=== PATIENT | female | born 1950 | race Caucasian/White ===

== ENCOUNTER 2017-08-24 17:32 | Inpatient (IN) | payer MEDICAID ==
[~2017-08-24] VITALS: Ht 162.6 cm; Wt 72.0 kg
[2017-08-24] MEDS ORDERED: ASPIRIN 325 MG TAB PO STA (17:59)
[2017-08-24] MEDS ORDERED: SOD CHLORIDE 0.9% 500 ML IV STA (17:59)
[2017-08-24] MEDS ORDERED: DILTIAZEM 25 MG INJ IV ONE (18:00)
--- NOTE | 2017-08-24 18:20 | RADRPT ---
PROCEDURE: XR Chest. CLINICAL INDICATION: Chest pain. TECHNIQUE: Single frontal view. COMPARISON: None. FINDINGS: The lungs are clear. The heart size is normal. There is no pleural effusion. There is no pneumothorax. IMPRESSION: 1. Normal chest radiograph. RPTAT: QQ .Werner iDaz MD, Date Time Electronically viewed and signed by .Werner Diaz MD, on 08/24/2017 18:20 .R/
[2017-08-24 19:05] LABS: BASOPHILS % 0.3 % (0.0-2.0); EOSINOPHILS # 0.1 10^3/ul (0.0-0.5); EOSINOPHILS % 1.1 % (0.0-7.0); HEMATOCRIT 41.8 % (37.0-47.0); LYMPHOCYTES % 19.6 % (15.0-51.0); MEAN CORPUSCULAR HEMOGLOBIN 31.3 pg (29.0-33.0); MEAN CORPUSCULAR HGB CONC 33.5 g/dl (32.0-37.0); MEAN CORPUSCULAR VOLUME 93.3 fl (82.0-101.0); MEAN PLATELET VOLUME 10.4 fl (7.4-10.4); MONOCYTE # 0.7 10^3/ul (0.3-0.9); MONOCYTES % 6.6 % (0.0-11.0); NEUTROPHIL # 7.4 10^3/ul (1.6-7.5); NEUTROPHILS % 72.1 % (39.0-77.0); PLATELET COUNT 241 10^3/UL (140-415); RED BLOOD COUNT 4.48 10^6/ul (4.20-5.40); RED CELL DISTRIBUTION WIDTH 12.8 % (11.5-14.5); WHITE BLOOD COUNT 10.2 10^3/ul (4.8-10.8)
[2017-08-24 19:33] LABS: ANION GAP 15 (8-16); BLOOD UREA NITROGEN 18 mg/dl (7-20); CALCIUM 9.9 mg/dl (8.4-10.2); CARBON DIOXIDE 27 mmol/L (21-31); CHLORIDE 105 mmol/L (97-110); GLUCOSE 92 mg/dl (70-220); POTASSIUM 3.7 mmol/L (3.5-5.1); SODIUM 143 mmol/L (135-144)
[2017-08-24] MEDS ORDERED: AMLO5TAB4 PO (19:36)
[2017-08-24] MEDS ORDERED: ASPI81TA3 PO (19:37)
[2017-08-24 19:45] LABS: B-TYPE NATRIURETIC PEPTIDE 524 PG/ML (0-125)
[2017-08-24 19:48] LABS: TROPONIN-I < 0.012 ng/ml (0.00-0.12)
[2017-08-24] MEDS ORDERED: morphine 4 MG/ML VIAL IV STA (20:19)
[2017-08-24] MEDS ORDERED: METOPROLOL 5 MG INJ IV ONE (20:30)
[2017-08-24] MEDS ORDERED: DILTIAZEM-D5W 125MG/125ML DRIP 125 ML IV SCH (20:30)
[2017-08-24] MEDS ORDERED: ENOXAPARIN 80 MG/0.8 ML SYG SC SCH (20:30)
[2017-08-24] MEDS ORDERED: ACETAMINOPHEN 325 MG TAB PO PRN (21:00)
[2017-08-24] MEDS ORDERED: ONDANSETRON 4 MG INJ IV PRN (21:00)
--- NOTE | 2017-08-24 23:42 | ERD ---
ER Documentation Chief Complaint Chief Complaint Complains of palpitions since today HPI This 59-year-old female comes in the emergency room for chest pain and palpitations as well as shortness of breath and nausea that began several hours ago. Chest pain is sharp on the left side and central. ROS All systems reviewed and are negative except as per history of present illness. Medications Home Meds Reported Medications Aspirin* (Aspirin* Chew) 81 Mg Tab.chew, 81 MG PO DAILY, TAB.CHEW 08/24/17 Amlodipine Besylate* (Norvasc*) 5 Mg Tablet, 5 MG PO DAILY, TAB 08/24/17 Allergies Allergies: Coded Allergies: No Known Allergy (Unverified , 08/24/17) PMhx/Soc History of Surgery: No Anesthesia Reaction: No Hx Neurological Disorder: No Hx Respiratory Disorders: No Hx Cardiac Disorders: Yes (htn) Hx Psychiatric Problems: No Hx Miscellaneous Medical Probl: No Hx Alcohol Use: No Hx Substance Use: No Hx Tobacco Use: No Smoking Status: Never smoker Physical Exam Vitals Vital Signs Date Time Temp Pulse Resp B/P Pulse Ox O2 Delivery O2 Flow Rate FiO2 08/24/17 20:12 99.7 112 19 130/89 100 Room Air 08/24/17 19:01 99.7 99 19 126/82 100 Room Air 08/24/17 17:37 99.7 82 20 120/80 100 Physical Exam Const: [] Moderate distress Head: Atraumatic Eyes: Normal Conjunctiva ENT: Normal External Ears, Nose and Mouth. Neck: Full range of motion..~ No JVD Resp: Clear to auscultation bilaterally Cardio: Irregularly irregular tachycardia, no murmurs Abd: Soft, non tender, non distended. Normal bowel sounds Skin: No petechiae or rashes Back: No midline or flank tenderness Ext: No cyanosis, or edema Neur: Awake and alert and oriented 3, no focal deficits Psych: Normal Mood and Affect Result Diagram: 08/24/17184908/24/171849 Results 24 hrs Laboratory Tests Test 08/24/17 18:50 White Blood Count 10.210^3/ul Red Blood Count 4.4810^6/ul Hemoglobin 14.0g/dl Hematocrit 41.8% Mean Corpuscular Volume 93.3fl Mean Corpuscular Hemoglobin 31.3pg Mean Corpuscular Hemoglobin Concent 33.5g/dl Red Cell Distribution Width 12.8% Platelet Count 14287^3/UL Mean Platelet Volume 10.4fl Neutrophils % 72.1% Lymphocytes % 19.6% Monocytes % 6.6% Eosinophils % 1.1% Basophils % 0.3% Nucleated Red Blood Cells % 0.0/100WBC Neutrophils # 7.410^3/ul Lymphocytes # 2.010^3/ul Monocytes # 0.710^3/ul Eosinophils # 0.110^3/ul Basophils # 0.010^3/ul Nucleated Red Blood Cells # 0.010^3/ul Sodium Level 143mmol/L Potassium Level 3.7mmol/L Chloride Level 105mmol/L Carbon Dioxide Level 27mmol/L Anion Gap 15 Blood Urea Nitrogen 18mg/dl Creatinine 0.80mg/dl Glucose Level 92mg/dl Calcium Level 9.9mg/dl Troponin I < 0.012ng/ml B-Type Natriuretic Peptide 524PG/ML Current Medications Medications (Trade) Dose Ordered Sig/Lev Route PRN Reason Start Time Stop Time Status Last Admin Dose Admin Sodium Chloride (NS) 500 ml @ 500 mls/hr Q1H STAT IV 08/24/17 17:59 08/24/17 18:58 DC 08/24/17 17:59 Aspirin (Aspirin) 325 mg ONCE STAT PO 08/24/17 17:59 08/24/17 18:02 DC 08/24/17 18:50 Diltiazem HCl (Cardizem Iv) 20 mg ONCE ONCE IV 08/24/17 18:00 08/24/17 18:02 DC 08/24/17 18:50 Metoprolol Tartrate 5 mg 5 mg ONCE ONCE IV 08/24/17 20:30 08/24/17 20:31 DC 08/24/17 20:40 Diltiazem HCl (Cardizem-D5W 125 Mg/125 ml Drip) 125 ml @ 5 mls/hr TITRATE IV 08/24/17 20:30 08/24/17 20:40 Enoxaparin Sodium (Lovenox) 70 mg ONCE SC 08/24/17 20:30 08/24/17 20:40 Morphine Sulfate (morphine) 4 mg ONCE STAT IV 08/24/17 20:19 08/24/17 20:22 DC 08/24/17 20:41 Ondansetron HCl (Zofran Inj) 4 mg ER BRIDGE PRN IV NAUSEA AND/OR VOMITING 08/24/17 21:00 08/25/17 20:59 Acetaminophen (Tylenol Tab) 650 mg ER BRIDGE PRN PO MILD PAIN/FEVER 08/24/17 21:00 08/25/17 20:59 Procedures/MDM A. fib with RVR in a patient is not acting in a critically as well as chest pain with no signs of acute ischemia. She was given 500 of normal saline as well as 20 mg of Cardizem. No signs of CHF. This initially slowed her heart rate which still remained over 100. She was then given 5 mg metoprolol started on a Cardizem drip. She was given 325 mg of aspirin as well. Administered 1 mg /kg of Lovenox the patient is not anticoagulated although she has had A. fib in the past in [place]. Rivera is admitting EKG interpretation: Fibrillation rate of 141, left axis deviation, no ST or T- wave changes concerning for acute ischemia. 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 fib with RVR gradually improved with medications. Other arrhythmias Chest x-ray interpretation: See no acute process, see no infiltrates, no widened mediastinum, pneumothorax, no fracture Critical care time greater than 35 minutes: This includes treatment of A. fib with RVR, stable vital signs, using multiple doses of vasoactive agents and multiple visits patient's bedside to reassess status, chart review, careful fluid administration, discussion with patient and admitting doctor. This does not include any billable procedures. Departure Diagnosis: Primary Impression: Atrial fibrillation with RVR Additional Impression: Chest pain Condition: Serious MATHEW MIDDLETON DO Aug 24, 2017 23:42
[2017-08-25] VITALS (13 sets, daily range): BP systolic 100–120; BP diastolic 60–69; PULSE 93–98; RESP 16–20; TEMP 98.8; Ht 162.6 cm; Wt 72.0 kg
[2017-08-25] MEDS ORDERED: ACETAMINOPHEN 325 MG TAB PO PRN (00:30)
[2017-08-25] MEDS ORDERED: NACL 0.9% 3 ML SYG IV SCH (00:30)
[2017-08-25] MEDS ORDERED: ONDANSETRON 4 MG INJ IV PRN (00:30)
[2017-08-25 00:43] LABS: CREATINE KINASE 47 IU/L (23-200)
[2017-08-25 00:56] LABS: CK-MB 0.37 ng/ml (0.0-2.4)
[2017-08-25 01:14] LABS: TROPONIN-I < 0.012 ng/ml (0.00-0.12)
[2017-08-25] MEDS ORDERED: PANTOPRAZOLE 40 MG INJ IV SCH (06:00)
[2017-08-25] MEDS ORDERED: POTASSIUM CHLORIDE (SR) 20 MEQ TAB PO ONE (06:37)
--- NOTE | 2017-08-25 06:39 | HP ---
Date/Time of Note Date/Time of Note DATE: 08/25/17 TIME: 06:26 Assessment/Plan VTE Prophylaxis VTE Prophylaxis Intervention: LMWH Lines/Catheters IV [facility]ter [facility]from [facility] Peripheral IV Assessment/Plan Chief Complaint/Hosp Course This is a 67-year-old female being admitted to the telemetry floor for: #1 New onset atrial fibrillation: Patient denies any previous history of atrial fibrillation. At the current time she is rate controlled with a Cardizem drip. Will continue monitoring on telemetry. Will check TSH. Will check magnesium. Will replete potassium to keep it above 4. Will trend cardiac enzymes first set is negative. Will obtain an echocardiogram. Will consult cardiology. Patient also has been started on therapeutic doses of Lovenox for anticoagulation. Continue aspirin 81 mg. Check lipid panel. #2 pleuritic chest pain: Her cardiac enzymes at this time remain negative. Will continue to trend these. As she states that she had a previous history of blood clot I would like to check a CTA of the chest to rule out PE. She is currently on therapeutic dose of Lovenox we will continue this. #3 elevated BNP: At the current time patient does not appear fluid overloaded. Lungs are clear to auscultation and there is no lower extremity edema. She does not appear like she is in any acute cardiac decompensation. Will check a BNP. Will consult cardiology. #4 Hypertension: Continue Norvasc. #5 DVT GI prophylaxis: Lovenox, Protonix Further treatment strategy will be implemented as per the clinical course Problems: HPI/ROS Admit Date/Time Admit Date/Time Aug 24, 2017 at 20:48 Hx of Present Illness Chief complaint: Palpitations This is a 59-year-old female comes in the emergency room for chest pain and palpitations as well as shortness of breath and nausea that began several hours prior to arrival. Patient reports chest pain as being pleuritic in nature , worsening every time she takes a deep breath. She denies any fevers. Upon arriving to the ED she did receive metoprolol and is currently on a Cardizem drip with a heart rate currently rate controlled below 100. At the current time she denies any palpitations. She does report the pleuritic pain on deep inspiration, though it has decreased in intensity. Patient states that in the past that she had a blood clot apparently in her lower extremity and that they did give her a medication that she does not know the name of for a few weeks possibly. She denies any previous history of atrial fibrillation or irregular heartbeat. Allergies: NKDA Medications: See DEEDEE PAUL Const: As per HPI Eyes : No pain discharge or redness or change in visual acuity ENT: No pain, sore throat, congestion, congestion, dysphagia or discharge Respiratory: As per HPI Cardiovascular: As per HPI GI : no change in appetite, abdominal pain, nausea, vomiting, diarrhea, constipation, or change in the color his stool Genitourinary: No dysuria, hematuria, flank pain , discharge or CVA tenderness Musculoskeletal: No joint pain, back pain, neck pain, restricted range of motion in neck or joints Skin: No rash, bruising or hives Neuro: No headache, dizziness, syncope, seizure, focal weakness Endocrine: No polyuria, polydipsia, temperature intolerance Psych: No hallucination, depression, anxiety or suicidal ideation PMH/Family/Social Past Medical History Hypertension, blood clot?, History of left breast tumor Past Surgical History Left breast lumpectomy, tonsillectomy Family History Significant Family History: heart disease, diabetes Social History Alcohol Use: none Smoking Status: Never smoker Drug Use: none Exam/Review of Systems Vital Signs Vitals Vital Signs Date Time Temp Pulse Resp B/P Pulse Ox O2 Delivery O2 Flow Rate FiO2 08/25/17 04:27 94 08/25/17 04:00 99.2 16 103/60 98 08/25/17 01:07 Room Air 08/25/17 00:12 2.0 Intake and Output 08/24/17 08/24/17 08/25/17 15:00 23:00 07:00 Intake Total 100 ml Balance 100 ml Exam Exam General: Patient is a pleasant female lying in bed in no acute distress HEENT: Atraumatic, normocephalic. The pupils are equal, round and reactive. Extraocular motor are intact Neck: Supple with full range of motion. No rigidity or meningismus Chest: Nontender Lungs: Clear to auscultation bilaterally no crackles rales or wheezing, patient does report pleuritic substernal pain upon deep inspiration Heart: Currently regular rate and rhythm, previously irregular, no overt murmurs appreciated Abdomen: Soft , nontender, nondistended , bowel sounds are present. No guarding no rebound tenderness , No masses or organomegaly. No costovertebral temporal angle mass Extremities: Normal to inspection, no edema no cyanosis Neurologic: Normal mental status, speech normal, cranial nerves II through XII are intact, motor and sensory are intact, no focal weakness Additional Comments PROCEDURE: XR Chest. CLINICAL INDICATION: Chest pain. TECHNIQUE: Single frontal view. COMPARISON: None. FINDINGS: The lungs are clear. The heart size is normal. There is no pleural effusion. There is no pneumothorax. IMPRESSION: 1. Normal chest radiograph. RPTAT: QQ .Werner Diaz MD, MD Date Time Electronically viewed and signed by .Werner Diaz MD, MD on 08/24/2017 18:20 .R/ CC: MATHEW MIDDLETON DO EKG interpretation: Fibrillation rate of 141, left axis deviation, no ST or T- wave changes concerning for acute ischemia. As per ED physician recommendation Labs Result Diagram: 08/24/17 1850 08/24/17 1850 Medications Medications Current Medications Diltiazem HCl (Cardizem-D5W 125 Mg/125 ml Drip) 125 ml @ 5 mls/hr TITRATE IV Last administered on 08/24/17 20:40; Admin Dose 5 MLS/HR; Start 08/24/17 at 20:30 Ondansetron HCl (Zofran Inj) 4 mg Q6H PRN IV NAUSEA AND/OR VOMITING; Start at 00:30 Aspirin (Aspirin) 81 mg DAILY PO ; Start 08/25/17 at 09:00 Acetaminophen (Tylenol Tab) 650 mg Q6H PRN PO PAIN LEVEL 1-3 OR FEVER; Start 08/25/17 at 00:30 Pantoprazole (Protonix Iv) 40 mg DAILY@06 IV Last administered on 08/25/17 05 :55; Admin Dose 40 MG; Start 08/25/17 at 06:00 Enoxaparin Sodium (Lovenox) 70 mg Q12 SC ; Start 08/25/17 at 09:00 ANJALI MURPHY Aug 25, 2017 06:37
[2017-08-25] MEDS ORDERED: ENOXAPARIN 80 MG/0.8 ML SYG SC SCH (09:00)
[2017-08-25] MEDS ORDERED: ASPIRIN 81 MG TAB PO SCH ×2 (09:00)
[2017-08-25] MEDS ORDERED: AMLODIPINE 5 MG TAB PO SCH (09:00)
[2017-08-25 09:18] LABS: BASOPHILS % 0.3 % (0.0-2.0); EOSINOPHILS % 0.4 % (0.0-7.0); HEMATOCRIT 39.2 % (37.0-47.0); HEMOGLOBIN 13.3 g/dl (12.0-16.0); LYMPHOCYTES # 1.3 10^3/ul (0.8-2.9); LYMPHOCYTES % 13.4 % (15.0-51.0); MEAN CORPUSCULAR HEMOGLOBIN 31.5 pg (29.0-33.0); MEAN CORPUSCULAR HGB CONC 33.9 g/dl (32.0-37.0); MEAN CORPUSCULAR VOLUME 92.9 fl (82.0-101.0); MEAN PLATELET VOLUME 10.5 fl (7.4-10.4); MONOCYTE # 0.6 10^3/ul (0.3-0.9); MONOCYTES % 5.7 % (0.0-11.0); NEUTROPHIL # 7.8 10^3/ul (1.6-7.5); NEUTROPHILS % 79.8 % (39.0-77.0); PLATELET COUNT 241 10^3/UL (140-415); RED BLOOD COUNT 4.22 10^6/ul (4.20-5.40); RED CELL DISTRIBUTION WIDTH 12.9 % (11.5-14.5); WHITE BLOOD COUNT 9.8 10^3/ul (4.8-10.8)
[2017-08-25 09:43] LABS: ALBUMIN 3.4 g/dl (3.3-4.9); ALBUMIN/GLOBULIN RATIO 1.09; BILIRUBIN,INDIRECT 0.7 mg/dl (0-1.1); BILIRUBIN,TOTAL 0.7 mg/dl (0.2-1.3); CALCIUM 9.5 mg/dl (8.4-10.2); CHOL/HDL RATIO 2.5 RATIO; CREATININE 0.7 mg/dl (0.44-1.00); MAGNESIUM 1.9 mg/dl (1.7-2.5); POTASSIUM 4.6 mmol/L (3.5-5.1); TOTAL PROTEIN 6.5 g/dl (6.1-8.1)
[2017-08-25 09:53] LABS: CREATINE KINASE 35 IU/L (23-200)
[2017-08-25 10:09] LABS: CK-MB < 0.22 ng/ml (0.0-2.4); TROPONIN-I < 0.012 ng/ml (0.00-0.12)
[2017-08-25 10:13] LABS: THYROID STIMULATING HORMONE 1.61 MIU/L (0.465-4.680)
--- NOTE | 2017-08-25 11:24 | PN ---
Date/Time of Note Date/Time of Note DATE: 08/25/17 TIME: 11:24 Assessment/Plan VTE Prophylaxis VTE Prophylaxis Intervention: LMWH Lines/Catheters IV Catheter Type (from Nrs): Peripheral IV Assessment/Plan Assessment/Plan 1. Atrial fibrillation with RVR - Patient states she was told she had afib last month but only lasted 1 day - Started on Eliquis - Awaiting ECHO results - Cardiology on board and recommendations appreciated. Started on Eliquis and all other medications d/c 2. pleuritic chest pain - CTA performed and negative for any acute abnormalities. 3. Elevated BNP - Appears euvolemia with no LE edema - ECHO results pending 4. Hypertension - stable 5. Disposition - Will monitor overnight and if no issues, will d/c in am Subjective 24 Hr Interval Summary Free Text/Dictation Patient states shes feeling better since admission but still experiencing sternal chest discomfort. She was experiencing difficulty breathing yesterday prior to presenting but has improved. Denies any nausea, vomiting, chest pain, shortness of breath, palpitations, or abdominal issues. Exam/Review of Systems Vital Signs Vitals Vital Signs Date Time Temp Pulse Resp B/P Pulse Ox O2 Delivery O2 Flow Rate FiO2 08/25/17 08:18 99.0 98 19 110/69 98 08/25/17 01:07 Room Air 08/25/17 00:12 2.0 Intake and Output 08/24/17 08/24/17 08/25/17 15:00 23:00 07:00 Intake Total 100 ml Balance 100 ml Exam General: Patient is a pleasant female lying in bed in no acute distress HEENT: Atraumatic, normocephalic. The pupils are equal, round and reactive. Extraocular motor are intact Neck: Supple with full range of motion. Lungs: Clear to auscultation bilaterally no crackles rales or wheezing, patient does report pleuritic substernal pain upon deep inspiration Heart: Currently regular rate and rhythm, no overt murmurs appreciated Abdomen: Soft , nontender, nondistended , bowel sounds are present. No guarding no rebound tenderness Extremities: Normal to inspection, no edema no cyanosis Neurologic: Normal mental status, speech normal, cranial nerves II through XII are intact, motor and sensory are intact, no focal weakness Results Result Diagram: 08/25/1781208/25/17812 Results 24 hrs Laboratory Tests Test 08/24/17 18:50 08/24/17 23:00 08/25/17 08:13 White Blood Count 10.2 9.8 Red Blood Count 4.48 4.22 Hemoglobin 14.0 13.3 Hematocrit 41.8 39.2 Mean Corpuscular Volume 93.3 92.9 Mean Corpuscular Hemoglobin 31.3 31.5 Mean Corpuscular Hemoglobin Concent 33.5 33.9 Red Cell Distribution Width 12.8 12.9 Platelet Count 241 241 Mean Platelet Volume 10.4 10.5 H Neutrophils % 72.1 79.8 H Lymphocytes % 19.6 13.4 L Monocytes % 6.6 5.7 Eosinophils % 1.1 0.4 Basophils % 0.3 0.3 Nucleated Red Blood Cells % 0.0 0.0 Neutrophils # 7.4 7.8 H Lymphocytes # 2.0 1.3 Monocytes # 0.7 0.6 Eosinophils # 0.1 0.0 Basophils # 0.0 0.0 Nucleated Red Blood Cells # 0.0 0.0 Sodium Level 143 140 Potassium Level 3.7 4.6 Chloride Level 105 108 Carbon Dioxide Level 27 28 Anion Gap 15 9 # Blood Urea Nitrogen 18 15 Creatinine 0.80 0.70 Glucose Level 92 96 Calcium Level 9.9 9.5 Troponin I < 0.012 < 0.012 < 0.012 B-Type Natriuretic Peptide 524 H Creatine Kinase 47 35 Creatine Kinase Index 0.8 0.6 Creatinine Kinase MB (Mass) 0.37 < 0.22 Hemoglobin A1c 5.2 Magnesium Level 1.9 Total Bilirubin 0.7 Direct Bilirubin 0.00 Indirect Bilirubin 0.7 Aspartate Amino Transf (AST/SGOT) 22 Alanine Aminotransferase (ALT/SGPT) 36 Alkaline Phosphatase 81 Total Protein 6.5 Albumin 3.4 Globulin 3.10 Albumin/Globulin Ratio 1.09 Triglycerides Level 62 Cholesterol Level 183 LDL Cholesterol, Calculated 99 HDL Cholesterol 72 Cholesterol/HDL Ratio 2.5 Thyroid Stimulating Hormone (TSH) 1.610 Medications Medications Current Medications Diltiazem HCl (Cardizem-D5W 125 Mg/125 ml Drip) 125 ml @ 5 mls/hr TITRATE IV Last administered on 08/24/17t 20:40; Admin Dose 5 MLS/HR; Start 08/24/17 at 20:30 Ondansetron HCl (Zofran Inj) 4 mg Q6H PRN IV NAUSEA AND/OR VOMITING; Start at 00:30 Acetaminophen (Tylenol Tab) 650 mg Q6H PRN PO PAIN LEVEL 1-3 OR FEVER; Start 08/25/17 at 00:30 Pantoprazole (Protonix Iv) 40 mg DAILY@06 IV Last administered on 08/25/17 05 :55; Admin Dose 40 MG; Start 08/25/17 at 06:00 Enoxaparin Sodium (Lovenox) 70 mg Q12 SC Last administered on 08/25/17 09:19 ; Admin Dose 70 MG; Start 08/25/17 at 09:00 Amlodipine Besylate (Norvasc) 5 mg DAILY PO Last administered on 08/25/17 09: 20; Admin Dose 5 MG; Start 08/25/17 at 09:00 Aspirin (Aspirin) 81 mg DAILY PO Last administered on 08/25/17 09:20; Admin Dose 81 MG; Start 08/25/17 at 09:00 KATI ROCHE MD Aug 25, 2017 11:24
[2017-08-25] MEDS ORDERED: SOD CHLORIDE 0.9% 100 ML ONE (12:11)
[2017-08-25] MEDS ORDERED: IOHEXOL 100 ML ONE (12:11)
--- NOTE | 2017-08-25 12:47 | RADRPT ---
PROCEDURE: CTA Chest. CLINICAL INDICATION: Chest pain TECHNIQUE: The study was performed utilizing a multidetector CT scanner. Direct spiral 1 mm axial sections were obtained from the thoracic inlet to the upper abdomen with the use of 125 cc of Omnipa que 350 nonionic intravenous contrast material and reformatted at 3 mm. Coronal and sagittal reforma tions were obtained. 3-D reconstructions were also obtained. The images were reviewed on a PACS wor kstation. One or more of the following dose reduction techniques were used: - Automated exposure control. - Adjustment of the mA and/or kV according to patient size. Use of iterative reconstruction technique. DLP 402.1 mGycm CTDIvol 49.3 and 9.4 mGy COMPARISON: No prior studies are available for comparison. FINDINGS: The pulmonary arteries are within normal limits with no filling defects present to suggest pulmonary embolus. Aortic and coronary artery atherosclerotic plaque and calcification are present with no e vidence of dissection. There is no cardiomegaly. There is ascending aortic ectasia measuring up to 3.7 cm. Bilateral trace pleural effusions are seen with mild basilar septal thickening present. The lungs ar e otherwise clear. The airways are patent. There is no suspicious nodule or mass. The airways are p atent. There are no enlarged mediastinal or axillary lymph nodes. Upper abdominal structures are within normal limits. There is a fecal filled colon. Degenerative marquita nges are seen in the lumbar spine with no evidence of acute osseous abnormality. IMPRESSION: No CT evidence for pulmonary embolus. There is no aortic dissection. Atherosclerotic disease. There is ascending aortic ectasia. Trace bilateral layering effusions are present with mild pulmonary edema. RPTAT: AA .Raymundo Sutherland MD, MD Date Time Electronically viewed and signed by .Raymundo Sutherland MD, MD on 08/25/2017 12:46 .[place]/
--- NOTE | 2017-08-25 13:05 | CONS ---
Date/Time of Note Date/Time of Note DATE: 08/25/17 TIME: 13:03 Assessment/Plan Assessment/Plan Additional Assessment/Plan AFIB >NSR HTN ATYPICAL PLEURITIC CHEST PAIN -now in nsr -plan for an echo -rx elqiuis -stop asa and lovenoex -CTA reveals no PE -d/c plan ok Consultation Date/Type/Reason Admit Date/Time Aug 24, 2017 at 20:48 Hx of Present Illness This is a 59-year-old female comes in the emergency room for chest pain and palpitations as well as shortness of breath and nausea that began several hours prior to arrival. Patient reports chest pain as being pleuritic in nature , worsening every time she takes a deep breath. She denies any fevers. Upon arriving to the ED she did receive metoprolol and is currently on a Cardizem drip with a heart rate currently rate controlled below 100. At the current time she denies any palpitations. She does report the pleuritic pain on deep inspiration, though it has decreased in intensity. Patient states that in the past that she had a blood clot apparently in her lower extremity and that they did give her a medication that she does not know the name of for a few weeks possibly. She denies any previous history of atrial fibrillation or irregular heartbeat. She has had occaisonal plapitaitons in [facility] but never diagonsed wiht afib and not on any anticoagulation Social History Alcohol Use: none Smoking Status: Never smoker Drug Use: none Exam/Review of Systems Vital Signs Vitals Vital Signs Date Time Temp Pulse Resp B/P Pulse Ox O2 Delivery O2 Flow Rate FiO2 08/25/17 12:16 94 08/25/17 11:44 98.9 19 100/68 98 08/25/17 01:07 Room Air 08/25/17 00:12 2.0 Intake and Output 08/24/17 08/24/17 08/25/17 15:00 23:00 07:00 Intake Total 100 ml Balance 100 ml Results Result Diagram: 08/25/17 0813 08/25/17 0813 Results 24 hrs Laboratory Tests Test 08/24/17 18:50 08/24/17 23:00 08/25/17 08:13 White Blood Count 10.2 9.8 Red Blood Count 4.48 4.22 Hemoglobin 14.0 13.3 Hematocrit 41.8 39.2 Mean Corpuscular Volume 93.3 92.9 Mean Corpuscular Hemoglobin 31.3 31.5 Mean Corpuscular Hemoglobin Concent 33.5 33.9 Red Cell Distribution Width 12.8 12.9 Platelet Count 241 241 Mean Platelet Volume 10.4 10.5 H Neutrophils % 72.1 79.8 H Lymphocytes % 19.6 13.4 L Monocytes % 6.6 5.7 Eosinophils % 1.1 0.4 Basophils % 0.3 0.3 Nucleated Red Blood Cells % 0.0 0.0 Neutrophils # 7.4 7.8 H Lymphocytes # 2.0 1.3 Monocytes # 0.7 0.6 Eosinophils # 0.1 0.0 Basophils # 0.0 0.0 Nucleated Red Blood Cells # 0.0 0.0 Sodium Level 143 140 Potassium Level 3.7 4.6 Chloride Level 105 108 Carbon Dioxide Level 27 28 Anion Gap 15 9 # Blood Urea Nitrogen 18 15 Creatinine 0.80 0.70 Glucose Level 92 96 Calcium Level 9.9 9.5 Troponin I < 0.012 < 0.012 < 0.012 B-Type Natriuretic Peptide 524 H Creatine Kinase 47 35 Creatine Kinase Index 0.8 0.6 Creatinine Kinase MB (Mass) 0.37 < 0.22 Hemoglobin A1c 5.2 Magnesium Level 1.9 Total Bilirubin 0.7 Direct Bilirubin 0.00 Indirect Bilirubin 0.7 Aspartate Amino Transf (AST/SGOT) 22 Alanine Aminotransferase (ALT/SGPT) 36 Alkaline Phosphatase 81 Total Protein 6.5 Albumin 3.4 Globulin 3.10 Albumin/Globulin Ratio 1.09 Triglycerides Level 62 Cholesterol Level 183 LDL Cholesterol, Calculated 99 HDL Cholesterol 72 Cholesterol/HDL Ratio 2.5 Thyroid Stimulating Hormone (TSH) 1.610 Medications Medications Current Medications Diltiazem HCl (Cardizem-D5W 125 Mg/125 ml Drip) 125 ml @ 5 mls/hr TITRATE IV Last administered on 08/24/17t 20:40; Admin Dose 5 MLS/HR; Start 08/24/17 at 20:30 Ondansetron HCl (Zofran Inj) 4 mg Q6H PRN IV NAUSEA AND/OR VOMITING; Start at 00:30 Acetaminophen (Tylenol Tab) 650 mg Q6H PRN PO PAIN LEVEL 1-3 OR FEVER; Start 08/25/17 at 00:30 Enoxaparin Sodium (Lovenox) 70 mg Q12 SC Last administered on 08/25/17 09:19 ; Admin Dose 70 MG; Start 08/25/17 at 09:00 Amlodipine Besylate (Norvasc) 5 mg DAILY PO Last administered on 08/25/17 09: 20; Admin Dose 5 MG; Start 08/25/17 at 09:00 Aspirin (Aspirin) 81 mg DAILY PO Last administered on 08/25/17 09:20; Admin Dose 81 MG; Start 08/25/17 at 09:00 Pantoprazole (Protonix Tab) 40 mg DAILY@06 PO ; Start 08/26/17 at 06:00 JESSICA BROCK MD Aug 25, 2017 13:05
[2017-08-25] MEDS: APIXABAN 5 MG TABLET PO SCH ×2 (14:25→20:32)
[2017-08-26] VITALS: BP 111/62; PULSE 99; RESP 20
[2017-08-26 00:12] VITALS: PULSE 89
[2017-08-26 04:00] VITALS: BP 114/73; PULSE 84; RESP 20
[2017-08-26 04:31] VITALS: PULSE 80
[2017-08-26] MEDS ORDERED: PANTOPRAZOLE (EC) 40 MG TAB PO SCH (06:00)
[2017-08-26 08:00] VITALS: BP 120/79; PULSE 81; RESP 20
[2017-08-26] MEDS: APIXABAN 5 MG TABLET PO SCH (08:40)
[2017-08-26] MEDS ORDERED: METO-448 PO (08:40)
[2017-08-26] MEDS ORDERED: APIX5TAB PO (08:40)
--- NOTE | 2017-08-26 08:44 | PDOCDIS ---
Discharge Instructions DIAGNOSIS Discharge Diagnosis 1. Atrial fibrillation 2. Atypical pleuritic chest pain 3. Hypertension CONDITION Patient Condition: Good HOME CARE INSTRUCTIONS: Diet Instructions: Low Fat /CholesterolSpecial Diet: CARDIAC DIET. ACTIVITY: Activity Restrictions: No Restrictions FOLLOW UP/APPOINTMENTS Follow-up Plan 1. Take Eliquis twice a day to keep blood thin. If you experiencing a fall with head trauma or cut that wont stop bleeding please return to the ED 2. Take Metoprolol twice a day to regulate your heart rate 3. Establish care with a primary care physician 4. Follow up with Cardiology in 2 weeks REFERRALS Other Referrals Negro Boone MD Specialty: Cardiology Office Address [address] [place] [phone] Office KATI ROCHE MD Aug 26, 2017 08:44
--- NOTE | 2017-08-26 08:49 | PN ---
Date/Time of Note Date/Time of Note DATE: 08/26/17 TIME: 08:46 Assessment/Plan VTE Prophylaxis VTE Prophylaxis Intervention: other Lines/Catheters IV Catheter Type (from Nrs): Peripheral IV Assessment/Plan Assessment/Plan 1. Atrial fibrillation- resolved - Patient states she was told she had afib last month but only lasted 1 day - Started on Eliquis and will start on metoprolol low dose BID - ECHO pending but will have her follow up with Cardiology as outpatient - Cardiology on board and recommendations appreciated. 2. pleuritic chest pain - CTA performed and negative for any acute abnormalities. 3. Elevated BNP - Appears euvolemia with no LE edema - ECHO results pending 4. Hypertension - stable 5. Disposition - Stable for discharge Subjective 24 Hr Interval Summary Free Text/Dictation Patient doing well and feeling significantly better. Denies any new complaints and no acute overnight events. Exam/Review of Systems Vital Signs Vitals Vital Signs Date Time Temp Pulse Resp B/P Pulse Ox O2 Delivery O2 Flow Rate FiO2 08/26/17 08:00 98.3 81 20 120/79 95 Room Air 08/25/17 00:12 2.0 Intake and Output 08/25/17 08/25/17 08/26/17 15:00 23:00 07:00 Intake Total 1250 ml 200 ml Output Total 800 ml Balance 450 ml 200 ml Exam General: Patient is a pleasant female lying in bed in no acute distress HEENT: Atraumatic, normocephalic. The pupils are equal, round and reactive. Extraocular motor are intact Neck: Supple with full range of motion. Lungs: Clear to auscultation bilaterally no crackles rales or wheezing, patient does report pleuritic substernal pain upon deep inspiration Heart: Currently regular rate and rhythm, no overt murmurs appreciated Abdomen: Soft , nontender, nondistended , bowel sounds are present. No guarding no rebound tenderness Extremities: Normal to inspection, no edema no cyanosis Neurologic: Normal mental status, speech normal, cranial nerves II through XII are intact, motor and sensory are intact, no focal weakness Results Result Diagram: 08/25/1781208/25/17812 Medications Medications Current Medications Ondansetron HCl (Zofran Inj) 4 mg Q6H PRN IV NAUSEA AND/OR VOMITING; Start at 00:30 Acetaminophen (Tylenol Tab) 650 mg Q6H PRN PO PAIN LEVEL 1-3 OR FEVER; Start 08/25/17 at 00:30 Pantoprazole (Protonix Tab) 40 mg DAILY@06 PO Last administered on 08/26/17 05:57; Admin Dose 40 MG; Start 08/26/17 at 06:00 Apixaban (Eliquis) 5 mg BID PO Last administered on 08/26/17 08:40; Admin Dose 5 MG; Start 08/25/17 at 13:30 KATI ROCHE MD Aug 26, 2017 08:49
[2017-08-26 08:52] LABS: ALBUMIN 3.6 g/dl (3.3-4.9); CALCIUM 9.2 mg/dl (8.4-10.2); CREATININE 0.81 mg/dl (0.44-1.00); PHOSPHORUS 3.3 mg/dl (2.5-4.9)
[2017-08-26] MEDS ORDERED: METOPROLOL 25 MG TAB PO SCH (09:00)
--- NOTE | 2017-08-26 09:48 | DS ---
Date/Time of Note Date/Time of Note DATE: 08/26/17 TIME: 09:48 Discharge Summary Admission/Discharge Info Admit Date/Time Aug 24, 2017 at 20:48 Discharge Date/Time Discharge Diagnosis 1. Atrial fibrillation 2. Atypical pleuritic chest pain 3. Hypertension Patient Condition: Good Consults Cardiology- Dr. Poalo Wilson of Present Illness Chief complaint: Palpitations This is a 59-year-old female comes in the emergency room for chest pain and palpitations as well as shortness of breath and nausea that began several hours prior to arrival. Patient reports chest pain as being pleuritic in nature , worsening every time she takes a deep breath. She denies any fevers. Upon arriving to the ED she did receive metoprolol and is currently on a Cardizem drip with a heart rate currently rate controlled below 100. At the current time she denies any palpitations. She does report the pleuritic pain on deep inspiration, though it has decreased in intensity. Patient states that in the past that she had a blood clot apparently in her lower extremity and that they did give her a medication that she does not know the name of for a few weeks possibly. She denies any previous history of atrial fibrillation or irregular heartbeat. Hospital Course Patient was admitted to telemetry for further evaluation of atrial fibrillation. Per patient she had one episode one month prior but had resolved. She was also told she had a blood clot in her leg 1 month ago as well. Patient was unsure what medications she was on. Cardiology was consulted and Cardizem drip was stopped since converted back to sinus. She was started on Eliquis and Metoprolol which she tolerated. ECHO was performed and showed EF 45%. She was also complaining of atypical pleuritic type chest pain and CTA was performed which was negative for acute abnormalities. Patient remained stable overnight and was in sinus rhythm. She was discharged in good condition and remained in sinus rhythm. She was instructed to establish care with a PCP and follow up with Cardiology in 2 weeks. Home Meds Active Scripts Metoprolol Tartrate* (Lopressor*) 25 Mg Tab, 12.5 MG PO BID for 30 Days, #60 TAB Prov:KATI ROCHE MD 08/26/17 Apixaban* (Eliquis*) 5 Mg Tablet, 5 MG PO BID for 30 Days, #60 TAB 1 Refill Prov:KATI ROCHE MD 08/26/17 Discontinued Reported Medications Aspirin* (Aspirin* Chew) 81 Mg Tab.chew, 81 MG PO DAILY, TAB.CHEW 08/24/17 Amlodipine Besylate* (Norvasc*) 5 Mg Tablet, 5 MG PO DAILY, TAB 08/24/17 Follow-up Plan 1. Take Eliquis twice a day to keep blood thin. If you experiencing a fall with head trauma or cut that wont stop bleeding please return to the ED 2. Take Metoprolol twice a day to regulate your heart rate 3. Establish care with a primary care physician 4. Follow up with Cardiology in 2 weeks Primary Care Provider Care Physician No Primary Time spent on discharge: > 30 minutes Pending Labs Laboratory Tests Test 08/26/17 07:31 Sodium Level 141mmol/L (135-144) Potassium Level 4.0mmol/L (3.5-5.1) Chloride Level 106mmol/L (97-110) Carbon Dioxide Level 28mmol/L (21-31) Anion Gap 11 (8-16) Blood Urea Nitrogen 16mg/dl (7-20) Creatinine 0.81mg/dl (0.44-1.00) Glucose Level 90mg/dl (70-220) Calcium Level 9.2mg/dl (8.4-10.2) Phosphorus Level 3.3mg/dl (2.5-4.9) Magnesium Level 2.0mg/dl (1.7-2.5) Albumin 3.6g/dl (3.3-4.9) KATI ROCHE MD Aug 26, 2017 09:48 Magnesium Level 2.0mg/dl (1.7-2.5) Albumin 3.6g/dl (3.3-4.9) KATI ROCHE MD Aug 26, 2017 09:48
--- NOTE | 2017-08-26 10:36 | RADRPT ---
Echocardiogram Report Patient Name: IRIS FRIAS Gender: Female Date: 1950 Study Date: 25-Aug-2017 Life Teacher: KARINA Location: [id number] Ref. Physician: ANJALI MURPHY Quality: Good Procedures: Transthoracic echocardiogram with complete 2D, M-Mode, and doppler examination. Indications: Atrial Fibrillation. 2D/M Mode Doppler Measurement Value Normal Ranges Measurement Value Normal Ranges AoR Diam MM 3.2 cm VALENTIN Vmax 2.3 cm2 LA/Ao MM 0.9 VALENTIN VTI 2.3 cm2 LA Dimen MM 2.8 cm AV Peak Tino 1.3 m/sec LVIDd 2D 4.7 3.5 - 5.6 cm AV Peak PG 7.0 mmHg LVIDs 2D 3.5 2.1 - 4.1 cm LVOT Peak Tino 1.1 m/sec LVPWd 2D 1.0 0.6 - 1.1 cm LVOT Peak PG 4.5 mmHg IVSd 2D 1.0 0.6 - 1.1 cm MV E Peak Tino 0.5 m/sec EDV 2D 103.8 cm3 MV A Peak Tino 0.8 m/sec ESV 2D 43.6 cm3 MV E/A 0.7 EF 2D 50.0 50.0 - 65.0 % MV Decel Time 237 msec LVOT Diam 1.9 cm MV Decel Dare 2 MV E/A 0.7 TR Peak Tino 2.2 m/sec TR Peak PG 19.7 mmHg RVSP 23.0 mmHg RA Pressure 3.0 Findings Left Ventricle: Normal left ventricular systolic function. Normal left ventricular cavity size. Normal left ventricular wall thickness. Ejection fraction is visually estimated at 45 %. Right Ventricle: Normal right ventricular size. Normal right ventricular systolic function. Left Atrium: The left atrium is normal in size. Right Atrium: The right atrium is normal in size. Atrial Septum: Normal atrial septum. Mitral Valve: Normal appearance of the mitral valve. Normal appearance and function of the mitral valve with trace physiologic regurgitation. Aortic Valve: Normal appearance of the aortic valve. No significant aortic stenosis or insufficiency. Normal trileaflet aortic valve structure. Tricuspid Valve: Normal appearance of the tricuspid valve. Normal appearance and function of the tricuspid valve with trace physiologic regurgitation. Normal right ventricular systolic pressure. Estimated peak PA systolic pressure 23 mmHg. Pulmonic Valve: Normal pulmonic valve appearance. There is trace pulmonic regurgitation. Pericardium: Normal pericardium with no significant pericardial effusion. Aorta: Not well visualized. IVC: Normal size and normal respiratory collapse consistent with normal right atrial pressure. Conclusions 1.Normal appearance of the mitral valve. Normal appearance and function of the mitral valve with trace physiologic regurgitation. 2.Normal appearance of the aortic valve. No significant aortic stenosis or insufficiency. Normal trileaflet aortic valve structure. 3.Normal left ventricular systolic function. Normal left ventricular cavity size. Normal left ventricular wall thickness. Ejection fraction is visually estimated at 45 %. Electronically Signed By: Keshav Dawson 26-Aug-2017 10:35:36 0700 Patient Name: IRIS FRIAS Study Date: 25-Aug-2017 [id number]
== END 2017-08-26 10:15 | disposition home or self-care (01) | DRG 310 ==
LOC: E/R 17:32 → MS4 20:48
PROVIDERS: ADMIT Family Medicine; ATTEND Family Medicine
DX: I48.91 Unspecified atrial fibrillation (principal); I10 Essential (primary) hypertension; R07.81 Pleurodynia; Z79.01 Long term (current) use of anticoagulants; Z79.82 Long term (current) use of aspirin
CPT/HCPCS: 36415; 71010; 71275; 80048; 80053; 80061; 80069; 82550; 82553; 83036; 83735; 83880; 84443; 84484; 85025; 86850; 86900; 86901; 93005; 93306; 96372; 96374; 96375; C9113; J2270; J7040; Q9967

== ENCOUNTER 2017-12-26 11:50 | Emergency (ER) | END 2017-12-26 13:51 | disposition home or self-care (01) ==

== ENCOUNTER 2018-06-12 12:52 | Emergency (ER) | END 2018-06-12 18:53 | disposition home or self-care (01) ==

== ENCOUNTER → 2018-07-05 | Emergency (ER) | END | disposition left against medical advice (07) ==